=== PATIENT | male | born 1975 | race Caucasian/White ===

== ENCOUNTER 2021-02-06 18:01 | Emergency (ER) | payer SELFPAY ==
[2021-02-06 18:06] VITALS: TEMP 97.8
[2021-02-06 18:19] LABS: BASO # 0.1 K/mm3 (0.0-0.2); BASO % 0.4 % (0.0-2.0); GRAN # 11.5 K/mm3 (1.4-6.5); GRAN % 89.4 % (42.2-75.2); HEMATOCRIT 47.6 % (42.0-52.0); HEMOGLOBIN 16.7 g/dl (13.5-18.0); LYMPH # 0.7 K/mm3 (1.2-3.4); LYMPH % 5.7 % (20.0-51.0); MEAN CELL VOLUME 84 fl (80.0-100.0); MEAN CORPUSCULAR HEMOGLOBIN 29 pg (27.0-31.0); MEAN CORPUSCULAR HGB CONC 35 g/dl (33.0-37.0); MEAN PLATELET VOLUME 9.5 fl (7.4-10.4); MONO # 0.5 K/mm3 (0.1-0.6); MONO % 3.9 % (1.7-9.3); PLATELET COUNT 271 K/mm3 (130-400); RED BLOOD COUNT 5.69 M/mm3 (4.20-5.60); REDCELL DISTRIBUTION WIDTH-CV 11.9 % (11.5-14.5)
[2021-02-06 18:36] LABS: ALANINE AMINOTRANSFERASE 9 U/L (0-55); ALKALINE PHOSPHATASE 55 U/L (40-150); ANION GAP 12 mmol/L (7-16); AST,SGOT 16 U/L (5-34); BLOOD UREA NITROGEN 13 mg/dL (9-21); CALCIUM 8.7 mg/dL (8.4-10.2); CARBON DIOXIDE 21 mmol/L (22-29); CHLORIDE 104 mmol/L (98-107); CREATININE, serum 0.92 mg/dL (0.72-1.25); GLUCOSE 174 mg/dL (70-99); LIPASE 323 U/L (8-78); POTASSIUM 3.9 mmol/L (3.5-4.5); SODIUM 137 mmol/L (136-145); TOTAL PROTEIN 7.1 gm/dL (6.2-8.1)
[2021-02-06 18:56] LABS: TSH w REFLEX 1.125 uIU/mL (0.350-4.940)
[2021-02-06 18:58] LABS: TROPONIN-I < 0.010 ng/mL (0.00-0.033)
[2021-02-06 19:19] LABS: ARTERIAL BLD GAS O2 SATURATION 97.2 % (92-100); ARTERIAL BLD GAS TCO2 CT 26.2; ARTERIAL BLOOD GAS BASE EXCESS -2.8 (-2-2); ARTERIAL BLOOD GAS HCO3 24.6 meq/L (22-26); ARTERIAL BLOOD GAS PCO2 52.4 mmHg (35-45); ARTERIAL BLOOD GAS PO2 98.4 mmHg (80-100); ARTERIAL BLOOD GAS pH 7.29 (7.35-7.45)
[2021-02-06 20:43] LABS: TRICYCLIC ANTIDEPRESS URINE NEGATIVE
[2021-02-06 21:18] VITALS: BP 171/109; PULSE 111
== END 2021-02-06 21:18 | disposition left against medical advice (07) ==
LOC: COL.ER 18:01
PROVIDERS: Emergency Medicine
DX: R09.02 Hypoxemia (principal); R65.10 Systemic inflammatory response syndrome (SIRS) of non-infectious origin without acute organ dysfunction; D72.829 Elevated white blood cell count, unspecified; R41.82 Altered mental status, unspecified; R79.1 Abnormal coagulation profile; Z20.822 Contact with and (suspected) exposure to COVID-19
CPT/HCPCS: J0780; J1200; J7030; Q9967

== ENCOUNTER 2021-12-11 13:24 | Emergency (ER) | payer OTHER ==
[~2021-12-11] VITALS: Ht 175.3 cm; Wt 118.2 kg
[2021-12-11 13:33] VITALS: TEMP 98.9
[2021-12-11 14:37] LABS: BASO % 0.5 % (0.0-2.0); EOS # 0.1 K/mm3 (0.0-0.7); EOS % 0.9 % (0.0-4.0); GRAN # 6.1 K/mm3 (1.4-6.5); GRAN % 74.5 % (42.2-75.2); HEMATOCRIT 50.7 % (42.0-52.0); LYMPH # 1.3 K/mm3 (1.2-3.4); LYMPH % 16.3 % (20.0-51.0); MEAN CELL VOLUME 83 fl (80.0-100.0); MEAN CORPUSCULAR HEMOGLOBIN 30 pg (27-31); MEAN CORPUSCULAR HGB CONC 36 g/dl (33.0-37.0); MEAN PLATELET VOLUME 9.3 fl (7.4-10.4); MONO # 0.6 K/mm3 (0.1-0.6); MONO % 7.4 % (1.7-9.3); PLATELET COUNT 304 K/mm3 (130-400); RED BLOOD COUNT 6.11 M/mm3 (4.20-5.60); REDCELL DISTRIBUTION WIDTH-CV 11.9 % (11.5-14.5)
[2021-12-11 14:44] LABS: HEMOGLOBIN 18.2 g/dl (13.5-18.0)
[2021-12-11 15:01] LABS: ALBUMIN 4.3 gm/dL (3.5-5.0); BILIRUBIN,TOTAL 0.8 mg/dL (0.2-1.2); CALCIUM 9.6 mg/dL (8.4-10.2); CREATININE, serum 0.92 mg/dL (0.72-1.25); TOTAL PROTEIN 7.3 gm/dL (6.2-8.1)
[2021-12-11 15:09] LABS: TROPONIN-I 0.025 ng/mL (0.00-0.033)
[2021-12-11 16:27] VITALS: BP 195/137; PULSE 89
[2021-12-11] MEDS ORDERED: TOPROL XL 50MG50 MG PO (16:50)
== END 2021-12-11 16:27 | disposition left against medical advice (07) ==
LOC: COL.ER 13:24
PROVIDERS: Nurse Practitioner
DX: I16.0 Hypertensive urgency (principal); Z28.310 Unvaccinated for COVID-19; Z91.040 Latex allergy status
CPT/HCPCS: J0360